=== PATIENT | female | born 1975 | race Two or more races ===

== ENCOUNTER 2021-01-06 12:30 | Inpatient (IN) | payer OTHER ==
[~2021-01-06] VITALS: Ht 170.2 cm; Wt 106.6 kg
[2021-01-06] MEDS ORDERED: IRBESARTAN-HCT1 EACH PO (16:32)
[2021-01-06] MEDS ORDERED: VITAMIN C100 MG PO (16:33)
[2021-01-09] MEDS ORDERED: METHOCARBAMOL500 MG (08:29)
[2021-01-09] MEDS ORDERED: NAPROXEN SODIU550 MG (08:30)
== END 2021-01-10 13:14 | disposition home or self-care (01) | DRG 747 ==
LOC: O/R 01-09 06:54 → OB/GYN 01-09 08:30
PROVIDERS: ADMIT Specialist; ATTEND Specialist
PROC: 0UBG0ZX Excision of Vagina, Open Approach, Diagnostic (ICD-10-PCS; principal; 2021-01-09 08:30)
DX: D07.2 Carcinoma in situ of vagina (principal); I10 Essential (primary) hypertension